=== PATIENT | male | born 1980 | race Caucasian/White ===

== ENCOUNTER → 2022-01-01 09:44 | Outpatient (CLI) | payer OTHER, SELFPAY ==
--- NOTE | ~2022-01-01 | MR_ITS ---
EXAMINATION: MR shoulder LT wo con DATE: 01/01/2022 10:34 INDICATION: Left shoulder pain TECHNIQUE: Magnetic resonance imaging (MRI) of the left shoulder was performed without intravenous co ntrast. Sequences included axial PD-weighted FS FSE, coronal oblique PD-weighted FS FSE, coronal obli que T2-weighted FS FSE, sagittal PD-weighted FS FSE, and sagittal T1-weighted SE. COMPARISON: None. FINDINGS: Coracoacromial arch: The acromion undersurface is flat in morphology (type I). The coracoacromial ligament is normal. Mild acromioclavicular osteoarthritis. Rotator cuff: The supraspinatus, infraspinatus and teres minor tendons are normal. Mild subscapularis tendinopathy without tear. Normal rotator cuff muscle bulk and signal. Biceps tendon, glenoid labrum and glenohumeral cartilage: Long head of the biceps tendon is normal. Partial-thickness cartilage loss along the cephalad two thi rds of the glenoid with smooth chondral surface. Chondral swelling with mild chondral surface irregul arity at the anteroinferior glenoid. Thickening and amorphous increased signal of the anteroinferior and inferior glenoid labrum consistent with degenerative tearing. The posterior and posterosuperior l abrum is diminutive but without discrete tear. Additional tarsal thickness cartilage loss along the h umeral head generally with smooth chondral surface. There is a small region of deeper chondral ulcera tion with cortical irregularity and mild subarticular edema-like signal change at the posterior infer ior margin of the humeral head. Fluid: Minimal glenohumeral joint effusion with extension of a proportional small amount of fluid into the l nadia head biceps tendon sheath. 8 x 3 x 2 mm filling defect likely loose osteochondral body within the long head biceps tendon sheath. No intra-articular loose osteochondral bodies. No abnormal fluid sig nal in the subacromial/subdeltoid bursa to suggest bursitis. Bones: Normal marrow signal with no edema, fracture or pathologic marrow replacing process. IMPRESSION: 1. Mild glenohumeral osteoarthritis with degenerative tearing of the inferior half the glenoid labrum . 2. Mild subscapularis tendinopathy without tear. Reviewed, dictated and finalized at location B. IMPRESSION: 1. Mild glenohumeral osteoarthritis with degenerative tearing of the inferior h john the glenoid labrum. 2. Mild subscapularis tendinopathy without tear.
== END ==
PROVIDERS: PCP Orthopaedic Surgery; Visit Provider Orthopaedic Surgery
DX: M19.012 Primary osteoarthritis, left shoulder (principal); M25.412 Effusion, left shoulder
CPT/HCPCS: 73221